=== PATIENT | female | born 1970 | race Caucasian/White ===

== ENCOUNTER 2024-09-30 09:58 | Outpatient (CLI) | payer OTHER, SELFPAY ==
--- OUTSIDE RECORDS SUMMARY | 2024-09-30 10:02 | XMS_ITS | Clinical Summary ---
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 Gender Identity Not on file Sexual Orientation Not on file Plan of Treatment Health Maintenance Due Date Last Done Comments Hepatitis C Virus (HCV) Screening 1969 Hepatitis B Immunization (1 of 3 - 19+ 3-dose series) 1988 Pap Smear 1990 Cervical Cancer Screening (CCS) 11/10/1999 HPV/Cotest 11/10/1999 Cologuard 2014 Colonoscopy 2014 Colorectal Cancer Screening 2014 Immunochemical Fecal Occult Blood 2014 Pneumococcal Immunization (5 0+ years) (1 of 1 - PCV) 11/10/2019 Zoster Immunization (1 of 2) 11/10/2019 SARS-COV-2 Immunization ( - 2023- season) 2023 Influenza Immunization (#1) 10/24/202404/23, 01/22/2016 Respiratory Syncytial Virus (RSV) Immunization (Adult) (1 - 1-dose 75+ series) 2044 DTaP/Tdap/Td Immunization Discontinued 04/09/2015 TdaP Immunization Completed 04/09/2015 Human Papillomavirus (HPV) Immunization Aged Out No longer eligible based on patient's age to complete this topic Meningococcal Immunization (ACWY) Aged Out No longer eligible based on patient's age to complete this topic Rotavirus Immunization Aged Out No lo nger eligible based on patient's age to complete this topic
--- OUTSIDE RECORDS SUMMARY | 2024-09-30 10:02 | XMS_ITS | Clinical Summary ---
Author Organization [facility] Address [address] [place] [address] Care Team Providers Care Regional Sales Representative Name Role Phone Dione Kiser MD Primary Care Provider Source Comments [facility],non-owned Affiliates and Associated Physician Practices is amultiple site organization consisting of ambulatory clinics and hospital sitesin [place], [place], [place] and [place]. This disclosure is being madepursuant to the Care Everywhere program and may not contain all information available regarding this patient. Last updated 17.[facility] Allergies Active Allergy Reactions Criticality Noted Date Comments Ibuprofen GI Discomfort 06/15/2018 Latex Rash Medium 06/23/2018 Medications * Be aware that medications may not be up to date on this document. Alwaysverify current medications with the patient. acetaminophen (TYLENOL) 500 MG capsule Take 1 capsule by mouth every 4 hours as needed for Fever or Pain 30 capsule 06/23/2018 Active Active Problems No known active problems Family History Medical History Relation Name Comments Cancer - Colon Cousin Cancer - Pancreatic Cousin Cancer - Lung Father Cancer - Lung Paternal Aunt Cancer - Lung Paternal Grandfather Cancer - Lung Paternal Uncle Relation Name Status Comments Cousin Father Paternal Aunt Paternal Grandfather Paternal Uncle Social History Tobacco Use Types Packs/Day Years Used Date Smoking Tobacco: Every Day Cigarettes Smokeless Tobacco: Never Comments:3 packs weekly Alcohol Use Standard Drinks/Week Comments Yes 0 (1 standard drink = 0.6 oz pur e alcohol) once in awhile, rarely Comments No Sex and Gender Information Value Date Recorded Sex Assigned at Not on file Legal Sex Female 4:04 PM CDT Gender Identity Not on file Sexual Orientation Not on file Last Filed Vital Signs Vital Sign Reading Time Taken Comments Blood Pressure 125/84 07/22/2018 11:03 AM CDT Pulse 81 06/23/2018 11:21 AM CDT Temperature 36.4 C (97.6 F) 06/23/2018 10:50 AM CDT Respiratory Rate 16 06/23/2018 11:21 AM CDT Oxygen Saturation 99% 06/23/2018 11:21 AM CDT Inhaled Oxygen Concentration - - Weight 89.4 kg (197 lb) 07/22/2018 11:03 AM CDT Height 154.9 cm (5' 1) 07/22/2018 11:03 AM CDT Body Mass Index 37.22 07/22/2018 11:03 AM CDT Plan of Treatment Health Maintenance Due Date Last Done Comments COLOGUARD (AGES 45-75) - COL ON CA SCREENING 1969 COLON MONITORING 1969 COLONOSCOPY - COLON CA SCREENING 1969 CT COLONOGRAPHY - COLON CA SCREENING 1969 Colorectal Cancer Screening 1969 FIT - COLON CA SCREENING 1969 FLEX SIG - COLON CA SCREENING 1969 LIPID TESTING 1969 MAMMOGRAM 1969 HIV SCREENING 1984 HEPATITIS C SCREENING 11/05/1987 DTAP/TDAP/TD VACCINES (1 - Tdap) 1988 HEPATITIS B VACCINE (1 of 3 - 19+ 3-dose series) 1988 PNEUMOCOCCAL VACCINE 50+ (1 of 1 - PCV) 11/10/2019 ZOSTER VACCINE (1 of 2) 11/10/2019 SCREENING FOR DIABETES 06/15/2021 06/15/2018 COVID-19 VACCINE (1 - 2023-2 5 season) 2023 DEPRESSION SCREENING 02/24/2024 INFLUENZA VACCINE (#1) 2024 HIB VACCINE Aged Out No longer eligi ble based on patient's age to complete this topic HPV VACCINE Aged Out No longer eligi ble based on patient's age to complete this topic MENINGOCOCCAL (Group B) VACC INE SHARED DECISION-MAKING Aged Out No longer eligibl e based on patient's age to complete this topic MENINGOCOCCAL GROUPS A/C/Y/W VACCINE Aged Out No longer eligible b ased on patient's age to complete this topic Procedures Procedure Name Priority Date/Time Associated Diagnosis Comments COMPREHENSIVE METABOLIC PANEL Routine 06/15/2018 5:02 PM CDT Pelvic mass from Last 3 Months or Most Recently Relevant to Health Maintenance Results * (ABNORMAL) COMPREHENSIVE METABOLIC PANEL (06/15/2018 5:02 PM CDT) Glucose 79 74 - 106 mg/dL 06/15/2018 5:58 PM CDT [facility] Sodium 138 136 - 145 mmol/L 06/15/2018 5:58 PM CDT [facility] Potassium 4.0 3.5 - 5.1 mmol/L 06/15/2018 5:58 PM CDT [facility] Chloride 107 98 - 107 mmol/L 06/15/2018 5:58 PM CDT [facility] CO2 23 23 - 31 mmol/L 06/15/2018 5:58 PM CDT [facility] Calcium 9.8 8.4 - 10.2 mg/dL 06/15/2018 5:58 PM CDT [facility] Anion Gap 8 8 - 16 mmol/L 06/15/2018 5:58 PM CDT [facility] BUN 20(H) 7 - 18.7 mg/dL 06/15/2018 5:58 PM CDT [facility] Creatinine 0.71 0.55 - 1.02 mg/dL 06/15/2018 5:58 PM CDT [facility] Alkaline Phosphatase 91 40 - 150 U/L 06/15/2018 5:58 PM CDT [facility] ALT 20 13 - 61 U/L 06/15/2018 5:58 PM CDT [facility] AST 17 5 - 34 U/L 06/15/2018 5:58 PM CDT [facility] Protein Total 7.7 6.4 - 8.3 gm/dL 06/15/2018 5:58 PM CDT [facility] Albumin 4.4 3.5 - 5.2 gm/dL 06/15/2018 5:58 PM CDT [facility] Bilirubin Total 0.2 0.2 - 1.0 mg/dL 06/15/2018 5:58 PM CDT [facility] eGFR by MDRD >60 >60 mL/min/1.7 3m2 06/15/2018 5:58 PM CDT [facility] eGFR by MDRD >60 >60 mL/min/1.7 3m2 06/15/2018 5:58 PM CDT [facility] Blood BLOOD SPECIMEN / Unknown Lab Venipuncture / Unknown 06/15/2018 5:02 PM CDT 06/15/2018 5:02 PM CDT Constance Moses MD LAB - CHEMISTRY ORDERABLES Final Result Performing Organization Address City/State/[facility] Co de Phone Number [facility] [address] [place] [address] from Last 3 Months or Most Recently Relevant to Health Maintenance Insurance MEDICAID - [place] MEDICAID [facility] Care Teams Regional Sales Representative Relationship Specialty Start Date End Date Dione Kiser MD [address] [place], [place] [phone] PCP - General 06/09/18
--- OUTSIDE RECORDS SUMMARY | 2024-09-30 10:02 | XMS_ITS | Clinical Summary ---
Author Organization [facility] Address [address] [place] [address] Care Team Providers Care Chief Quality Officer Name Role Phone Meghann Cruz Primary Care Provider [phone] Social History Tobacco Use Types Packs/Day Years Used Date Smoking Tobacco: Never Assessed Personal Safety Answer Date Recorded Getting School Help Needed Not on file 05/09 Comments Unknown Sex and Gender Information Value Date Recorded Sex Assigned at Not on file Legal Sex Female 2:48 PM CDT Gender Identity Not on file Sexual Orientation Not on file Plan of Treatment Health Maintenance Due Date Last Done Comments Breast Cancer Screening-Mammogram 1969 Cervical Cancer Screening 1969 Colon Cancer Screening-Colonoscopy 1969 Depression Screening 1969 Hepatitis C Screening 1969 Hepatitis B Screening 11/10/1987 Regular Well Visit/Exam 18-64 11/10/1987 Zoster Vaccine (1 of 2) 11/10/2019 Influenza Vaccine (#1) 2024 9, 01/22/2016 DTaP/Tdap/Td Vaccine (2 - Td or Tdap) 04/09/2025 04/09/2015 Pneumococcal vaccine <65 Aged Out No longer eligible based on patient's age to complete this topic Insurance [facility] CHOICE PLUS [facility] CHOICE PLUS Care Teams Chief Quality Officer Relationship Specialty [place] [address] [place] [address] PCP - General Physician Him Director 08/07/22
== END 2024-09-30 09:59 | disposition home or self-care (01) ==
LOC: ANHAUDIO 09:59
PROVIDERS: Visit Provider Emergency Medicine
DX: R42 Dizziness and giddiness (principal); Z82.2 Family history of deafness and hearing loss
CPT/HCPCS: 92557; 92567

== ENCOUNTER 2024-10-11 14:46 | Outpatient (CLI) | payer OTHER, SELFPAY ==
--- NOTE | 2024-10-11 | ECG_ITS ---
Test Date: 2024-10-11 15:06:50 Measurements Intervals [place] Rate: 77 P: 68 TX: 152 QRS: 15 QRSD: 98 T: 35 QT: 378 QTc: 428 Interpretive Statements SINUS RHYTHM POSSIBLE LEFT ATRIAL ENLARGEMENT INCOMPLETE RIGHT BUNDLE BRANCH BLOCK BORDERLINE ECG No previous ECG available for comparison Electronically Signed On 10-11-2024 16:54:09 CDT by Hunter Helton D.O.
--- OUTSIDE RECORDS SUMMARY | 2024-10-11 15:19 | XMS_ITS | Clinical Summary ---
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
--- OUTSIDE RECORDS SUMMARY | 2024-10-11 15:19 | XMS_ITS | Clinical Summary ---
Author Organization [facility] Address [address] [place] [address] Care Team Providers Care Business Office Manager Name Role Phone Meghann Cruz Primary Care Provider [phone] Social History Tobacco Use Types Packs/Day Years [...] patient's age to complete this topic Insurance [facility] CHOICE PLUS [facility] CHOICE PLUS Care Teams Business Office Manager Relationship Specialty Start [place] [address] [place] [address] PCP - General Physician Early Childhood Specialist 08/07/22
--- OUTSIDE RECORDS SUMMARY | 2024-10-11 15:19 | XMS_ITS | Clinical Summary ---
Author Organization [facility] Address [address] [place] [address] Care Team Providers Care Chain Offbearer Name Role Phone Dione Kiser MD Primary Care Provider Source Comments [facility],non-owned Affiliates and Associated Physician Practices is amultiple site organization consisting of ambulatory clinics and hospital sitesin [place], [place], [place] and [place]. This disclosure is being madepursuant to the Care Everywhere program and may not contain all information available regarding this patient. Last updated 17.[facility] Allergies Active Allergy Reactions Criticality Noted Date [...] - 5.1 mmol/L 06/15/2018 5:58 PM CDT [facility] Chloride 107 98 - 107 mmol/L 06/15/2018 5:58 PM CDT [facility] CO2 23 23 - 31 mmol/L 06/15/2018 5:58 PM CDT [facility] Calcium 9.8 8.4 - 10.2 mg/dL 06/15/2018 5:58 PM CDT [facility] Anion Gap 8 8 - 16 mmol/L 06/15/2018 5:58 PM CDT [facility] BUN 20(H) 7 - 18.7 mg/dL 06/15/2018 5:58 PM CDT [facility] Creatinine 0.71 0.55 - 1.02 mg/dL 06/15/2018 5:58 PM CDT [facility] Alkaline Phosphatase 91 40 - 150 U/L 06/15/2018 5:58 PM CDT [facility] ALT 20 13 - 61 U/L 06/15/2018 5:58 PM CDT [facility] AST 17 5 - 34 U/L 06/15/2018 5:58 PM CDT [facility] Protein Total 7.7 6.4 - 8.3 gm/dL 06/15/2018 5:58 PM CDT [facility] Albumin 4.4 3.5 - 5.2 gm/dL 06/15/2018 5:58 PM CDT [facility] Bilirubin Total 0.2 0.2 - 1.0 [...] CHEMISTRY ORDERABLES Final Result Performing Organization Address City/State/[facility] Co de Phone Number [facility] [address] [place] [address] from Last 3 Months or Most Recently Relevant to Health Maintenance Insurance MEDICAID - [place] MEDICAID [facility] Care Teams Chain Offbearer Relationship Specialty Start Date End Date Dione Kiser MD [address] [place], [place] [phone] PCP - General 06/09/18
== END 2024-10-11 14:47 | disposition home or self-care (01) ==
LOC: ANHCARD 14:52
PROVIDERS: PCP Emergency Medicine; Visit Provider Emergency Medicine
DX: R94.31 Abnormal electrocardiogram [ECG] [EKG] (principal); R42 Dizziness and giddiness
CPT/HCPCS: 93005